=== PATIENT | male | born 1990 | race Two or more races ===

== ENCOUNTER 2021-11-19 13:39 | Emergency (ER) | payer OTHER ==
[~2021-11-19] VITALS: Ht 175.3 cm; Wt 93.0 kg
[2021-11-19] MEDS ORDERED: DICLOFENAC SODI75 MG PO (17:57)
== END 2021-11-19 21:31 | disposition home or self-care (01) ==
LOC: ER 13:39
DX: S90.01XA Contusion of right ankle, initial encounter (principal); S90.31XA Contusion of right foot, initial encounter; W17.89XA Other fall from one level to another, initial encounter; Y93.89 Activity, other specified; Y92.098 Other place in other non-institutional residence as the place of occurrence of the external cause